=== PATIENT | male | born 1985 | race Caucasian/White ===

== ENCOUNTER 2020-11-01 07:58 | Emergency (ER) | payer OTHER ==
--- NOTE | 2020-11-01 08:12 | EDM.PDOC ---
ED HPI GENERAL MEDICAL PROBLEM - General Chief Complaint: Skin Complaint Stated Complaint: HIVES/RASH ON LEFT SIDE OF BODY Time Seen by Provider: 11/01/20 08:06 Source of Information: Reports: Patient History Limitations: Reports: No Limitations - History of Present Illness INITIAL COMMENTS - FREE TEXT/NARRATIVE: 34-year-old male past medical history toenail fungus presents for hives for the last couple of weeks. Patient denies any new changes in diet, detergents. He has been on terbinafine for the last 5 weeks and he stopped taking the terbinafine for the last 3 or 4 days but he has not noticed any improvement. His rash is described as erythematous, itchy, migratory sometimes on legs sometimes on arms sometimes on back sometimes on chest. Currently his worst rashes on his legs and his lower back. Denies any airway involvement, nausea, vomiting, fevers. Headache Pain Score (Numeric/FACES): 4 - Related Data Allergies Allergy/AdvReac Type Severity Reaction Status Date / Time shellfish derived Allergy Other Verified 11/01/20 08:15 Home Meds: Home Meds Cetirizine [ZyrTEC] 10 mg PO DAILY #14 tab 11/01/20 [Rx] Terbinafine [LamISIL AT 1% Crm] 1 dose PO ASDIRECTED 11/01/20 [History] predniSONE [Prednisone] 40 mg PO DAILY #14 tablet 11/01/20 [Rx] ED ROS GENERAL - Review of Systems Review Of Systems: Comprehensive ROS is negative, except as noted in HPI. ED EXAM, SKIN/RASH Exam: See Below Exam Limited By: No Limitations General Appearance: Alert, WD/WN, No Apparent Distress Throat/Mouth: Normal Voice, No Airway Compromise Head: Atraumatic, Normocephalic Neck: Normal Inspection Respiratory/Chest: No Respiratory Distress, No Accessory Muscle Use Cardiovascular: Normal Peripheral Pulses, Regular Rate, Rhythm Extremities: Normal Inspection Neurological: Alert, Normal Cognition, Normal Gait Psychiatric: Normal Affect, Normal Mood Skin: Warm, Dry, Intact, Normal Color, Other (urticarial rash on legs and lower back) Course - Vital Signs Last Recorded V/S: Last Vital Signs Temp 97.8 F 11/01/20 08:16 Pulse 82 11/01/20 08:16 Resp 16 11/01/20 08:16 BP 132/89 11/01/20 08:16 Pulse Ox 98 06/13/21 08:16 - Re-Assessments/Exams Free Text/Narrative Re-Assessment/Exam: 11/01/20 08:23 Will give 1-week course of prednisone and 2-week course of zyretc. Recommend dermatology f/u for definitive care. Departure - Departure Time of Disposition: 08:23 Disposition: Home, Self-Care 01 Condition: Good Clinical Impression: Hives - Discharge Information Prescriptions: predniSONE [Prednisone] 40 mg PO DAILY #14 tablet Cetirizine [ZyrTEC] 10 mg PO DAILY #14 tab Instructions: Hives Referrals: PCP,None [Primary Care Provider] - Forms: ED Department Discharge Additional Instructions: Even sent a prescription for Zyrtec and prednisone. Take the prednisone for the next week, I wrote a 2-week course of the Zyrtec. You can follow-up with dermatology for a more comprehensive evaluation and more definitive diagnosis and longer term treatment plan. The following information is given to patients seen in the emergency department who are being discharged to home. This information is to outline your options for follow-up care. We provide all patients seen in our emergency department with a follow-up referral. The need for follow-up, as well as the timing and circumstances, are variable depending upon the specifics of your emergency department visit. If you don't have a primary care physician on staff, we will provide you with a referral. We always advise you to contact your personal physician following an emergency department visit to inform them of the circumstance of the visit and for follow-up with them and/or the need for any referrals to a consulting specialist. The emergency department will also refer you to a specialist when appropriate. This referral assures that you have the opportunity for follow-up care with a specialist. All of these measure are taken in an effort to provide you with optimal care, which includes your follow-up. Under all circumstances we always encourage you to contact your private physician who remains a resource for coordinating your care. When calling for follow-up care, please make the office aware that this follow-up is from your recent emergency room visit. If for any reason you are refused follow-up, please contact the [facility] Emergency Department at and asked to speak to the emergency department charge nurse. Please follow up with your primary care physician. If you do not have a primary care physician, see below: [facility] [address], [place] [id number] My [facility] [address] [place] [address] [facility] [address] [place] [address] Sepsis Event Note (ED) - Focused Exam Vital Signs: Vital Signs Temp Pulse Resp BP Pulse Ox 11/01/20 08:16 97.8 F 82 16 132/89 98
== END 2020-11-01 08:28 | disposition home or self-care (01) ==
LOC: MW.ED 07:58
DX: L50.9 Urticaria, unspecified (principal); Z91.013 Allergy to seafood
CPT/HCPCS: 99283